=== PATIENT | female | born 1965 | race Two or more races ===

== ENCOUNTER 2022-04-09 03:55 | Emergency (ER) | payer OTHER ==
[~2022-04-09] VITALS: Ht 152.4 cm; Wt 57.6 kg
[2022-04-09] MEDS ORDERED: ACETAMINOPHEN650 M2 (05:02)
[2022-04-09] MEDS ORDERED: NORFLEX100MG PO (06:01)
[2022-04-09] MEDS ORDERED: MEDROLPACK PO (06:01)
[2022-04-09] MEDS ORDERED: KETO10TA2 PO (06:01)
== END 2022-04-09 06:05 | disposition home or self-care (01) ==
LOC: ER 03:55
DX: M25.511 Pain in right shoulder (principal); M50.30 Other cervical disc degeneration, unspecified cervical region; M46.90 Unspecified inflammatory spondylopathy, site unspecified; M62.838 Other muscle spasm; M47.892 Other spondylosis, cervical region

== ENCOUNTER 2022-08-02 18:39 | Emergency (ER) | payer OTHER ==
[~2022-08-02] VITALS: Ht 162.6 cm; Wt 57.6 kg
[~2022-08-02 18:39] MED LIST: ACETAMINOPHEN650 M2; KETO10TA2 PO; MEDROLPACK PO; NORFLEX100MG PO
[2022-08-02] MEDS ORDERED: KETO10TA2 PO (21:12)
== END 2022-08-02 21:19 | disposition home or self-care (01) ==
LOC: ER 18:39
DX: S50.01XA Contusion of right elbow, initial encounter (principal); W19.XXXA Unspecified fall, initial encounter; Y93.9 Activity, unspecified; Y92.9 Unspecified place or not applicable; Y99.9 Unspecified external cause status; M70.21 Olecranon bursitis, right elbow

== ENCOUNTER 2022-08-08 22:47 | Emergency (ER) | payer OTHER ==
[~2022-08-08] VITALS: Ht 162.6 cm; Wt 56.7 kg
[2022-08-09] MEDS ORDERED: MORGIDOX100 MG PO (03:05)
[2022-08-09] MEDS ORDERED: AZITHROMYCIN1 GM PO (03:05)
[2022-08-09] MEDS ORDERED: STRIBILD TABLE1 EACH PO (03:06)
== END 2022-08-09 03:31 ==
LOC: ER 22:47
DX: T76.21XA Adult sexual abuse, suspected, initial encounter (principal); S70.312A Abrasion, left thigh, initial encounter; S70.311A Abrasion, right thigh, initial encounter

== ENCOUNTER 2025-04-11 14:02 | Emergency (ER) | payer OTHER ==
[~2025-04-11] VITALS: Ht 162.6 cm; Wt 61.7 kg
[~2025-04-11 14:02] MED LIST changes: +AZITHROMYCIN1 GM PO; +MORGIDOX100 MG PO; +STRIBILD TABLE1 EACH PO
[2025-04-11] MEDS ORDERED: DIPHENHYDRAMINE HCL 50 MG/ML VIAL 1ML IM ONE (16:30)
[2025-04-11] MEDS ORDERED: METHYLPREDNISOLONE SOD SUCC 125 MG VIAL IM ONE (16:30)
[2025-04-11 17:58] LABS: BASO % 1.4 % (0.1-1.2); EOS # 0.08 (0.04-0.54); EOS % 1.4 % (0.7-7.0); LYMPH # 2.46 (1.18-3.74); LYMPH % 42.3 % (19.3-53.1); MEAN PLATELET VOLUME 11.50 fl (9.4-12.4); MONO # 0.80 (0.24-0.82); MONO % 13.8 % (4.7-12.5); NEUT # 2.38 (1.56-6.13); NEUT % 40.9 % (34.0-71.1); RED CELL DISTRIBUTION WIDTH 12.3 % (11.6-14.4)
[2025-04-11] MEDS ORDERED: XYZAL5 MG PO (18:14)
[2025-04-11] MEDS ORDERED: ANTI-ITCH28 GM TOP (18:14)
== END 2025-04-11 18:36 ==
LOC: ER 14:02
PROVIDERS: Emergency Medicine
DX: L29.89 Other pruritus (principal)